=== PATIENT | male | born 1970 | race Caucasian/White ===

== ENCOUNTER 2019-05-03 09:10 | Emergency (ER) | payer SELFPAY ==
[~2019-05-03] VITALS: Ht 180.3 cm; Wt 70.5 kg
[2019-05-03 09:14] VITALS: BP 132/82
[2019-05-03] MEDS ORDERED: CLINDAMYCIN 300 MG CAPSULE PO ONE (09:30)
[2019-05-03] MEDS ORDERED: IBUPROFEN 600 MG TABLET PO ONE (09:30)
[2019-05-03] MEDS ORDERED: IBUPROFEN 600 MG TABLET ONE (09:42)
[2019-05-03] MEDS ORDERED: CLINDAMYCIN 300 MG CAPSULE ONE (09:42)
--- NOTE | 2019-05-03 09:46 | NUR ---
Patient given discharge instructions and they have confirmed that they understand the instructions. Patient ambulatory with steady gait.
== END 2019-05-03 09:53 | disposition home or self-care (01) ==
LOC: ED 09:22
DX: K02.9 Dental caries, unspecified (principal); K08.89 Other specified disorders of teeth and supporting structures
CPT/HCPCS: 99283

== ENCOUNTER 2019-05-04 08:04 | Emergency (ER) | payer SELFPAY ==
[~2019-05-04] VITALS: Ht 175.3 cm; Wt 69.9 kg
--- NOTE | 2019-05-04 08:08 | NUR ---
called for triage, in restroom.
[2019-05-04] MEDS ORDERED: IBUPROFEN 600 MG TABLET PO ONE (09:00)
[2019-05-04] MEDS ORDERED: CLINDAMYCIN 300 MG CAPSULE PO ONE (09:00)
[2019-05-04] MEDS ORDERED: CLINDAMYCIN 300 MG CAPSULE ONE (09:53)
[2019-05-04] MEDS ORDERED: IBUPROFEN 600 MG TABLET ONE (09:54)
[2019-05-04 09:58] VITALS: BP 135/88
--- NOTE | 2019-05-04 09:59 | NUR ---
Patient/Caregiver given discharge instructions and they have confirmed that they understand the instructions. Patient ambulatory with steady gait.
== END 2019-05-04 10:00 | disposition home or self-care (01) ==
LOC: ED 09:54
DX: K02.9 Dental caries, unspecified (principal); K08.89 Other specified disorders of teeth and supporting structures
CPT/HCPCS: 99283

== ENCOUNTER 2020-03-12 00:46 | Emergency (ER) | payer MEDICAID, MEDICARE, OTHER ==
[~2020-03-12] VITALS: Ht 180.3 cm; Wt 81.0 kg
[2020-03-12 00:49] VITALS: BP 121/92
--- NOTE | 2020-03-12 00:57 | NUR ---
assessment made. chart up for MD to see.
--- NOTE | 2020-03-12 01:04 | NUR ---
PA at bedside.
[2020-03-12] MEDS ORDERED: PROPARACAINE OPHTH 0.5%, 15ML ONE (01:16)
[2020-03-12] MEDS ORDERED: FLUORESCEIN OPHTHALMIC 1 MG STRIP ONE (01:16)
[2020-03-12] MEDS ORDERED: FLUORESCEIN OPHTHALMIC 1 MG STRIP EACHEYE ONE (01:30)
[2020-03-12] MEDS ORDERED: PROPARACAINE OPHTH 0.5%, 15ML EACHEYE ONE (01:30)
[2020-03-12] MEDS ORDERED: AZITHROMYCIN 250 MG TABLET ONE (01:46)
[2020-03-12] MEDS ORDERED: CEFTRIAXONE 250 MG ONE (01:46)
--- NOTE | 2020-03-12 01:57 | NUR ---
Pt medicated per emar, tolerated well
[2020-03-12] MEDS ORDERED: AZITHROMYCIN 500 MG TABLET PO ONE (02:00)
[2020-03-12] MEDS ORDERED: ERYTHROMYCIN OPHTH 0.5%, 1GM EACHEYE ONE (02:00)
[2020-03-12] MEDS ORDERED: CEFTRIAXONE 250 MG IM ONE (02:00)
--- NOTE | 2020-03-12 02:03 | NUR ---
patient discharged with instruction. verbalized understanding.
== END 2020-03-12 02:07 | disposition home or self-care (01) ==
LOC: ED 01:36
DX: H10.023 Other mucopurulent conjunctivitis, bilateral (principal)
CPT/HCPCS: 96372; 99283; J0696

== ENCOUNTER 2020-08-31 13:48 | Emergency (ER) | payer MEDICAID ==
[~2020-08-31] VITALS: Ht 180.3 cm; Wt 82.2 kg
[2020-08-31 13:51] VITALS: BP 187/108
--- NOTE | 2020-08-31 14:10 | NUR ---
PT TO ROOM FROM LOBBY
--- NOTE | 2020-08-31 14:15 | NUR ---
INITIAL PT CONTACT. PT PRESENTS TO THE ED C/O ETOH WITHDRAWAL. PT STATES "I DRINK A HALF GALLON TO A GALLON OF [place] OR [place] EVERY DAY. I REALLY WANT TO STOP. IT'S JUST GOTTEN PROGRESSIVELY WORSE. I FEEL A LITTLE SWEATY AND SHAKEY". PT SITTING UPRIGHT ON GURNEY, NAD, VSS. PT DENIES ANY NEEDS AT THIS TIME. CALL LIGHT AND PERSONAL BELONGINGS WITHIN REACH. CONTINUOUS PULSE OX AND SOLAR MANUFACTURER'S REPRESENTATIVE IN PLACE. WILL CONTINUE TO MONITOR.
[2020-08-31] MEDS ORDERED: ONDANSETRON 2MG/ML, 2ML ONE (14:35)
[2020-08-31] MEDS ORDERED: LORazepam 2 MG/ML, 1ML ONE (14:35)
[2020-08-31 14:50] LABS: BASOPHILS % (AUTO) 1 % (0-1); EOSINOPHILS % (AUTO) 1 % (1-7); LYMPHOCYTES % (AUTO) 26 % (22-44); MEAN CORPUSCULAR HEMOGLOBIN 31.4 pg (27.5-34.5); MEAN CORPUSCULAR HGB CONC 33.2 g/dL (33.2-36.2); MONOCYTES % (AUTO) 9 % (2-9); NEUTROPHILS % (AUTO) 62 % (42-75); PLATELET COUNT 245 x10^3/uL (130-400); RED BLOOD COUNT 4.51 x10^6/uL (4.38-5.82)
[2020-08-31] MEDS ORDERED: THIAMINE 100MG TABLET ONE (14:55)
[2020-08-31 14:57] LABS: MD NO
[2020-08-31] MEDS ORDERED: SODIUM CHLORIDE 0.9% 1,000ML IVBOLUS ONE (15:00)
[2020-08-31] MEDS ORDERED: ONDANSETRON 2MG/ML, 2ML IVPush ONE (15:00)
[2020-08-31] MEDS ORDERED: LORazepam 2 MG/ML, 1ML IVPush ONE (15:00)
[2020-08-31] MEDS ORDERED: THIAMINE 100MG TABLET PO ONE (15:00)
[2020-08-31 15:01] LABS: ALANINE AMINOTRANSFERASE 194 U/L (12-78); ALBUMIN 3.4 g/dL (3.4-5.0); ANION GAP 8 mmol/L (5-15); CALCIUM 8.9 mg/dL (8.5-10.1); CHLORIDE 112 mmol/L (98-107); CREATININE 1.03 mg/dL (0.7-1.3)
--- NOTE | 2020-08-31 15:03 | NUR ---
PT SITTING UPRIGHT ON GURNEY, NAD, VSS. PT DENIES ANY NEEDS AT THIS TIME. CALL LIGHT AND PERSONAL BELONGINGS WITHIN REACH.
[2020-08-31 15:04] LABS: ALKALINE PHOSPHATASE 121 U/L (45-117); BILIRUBIN,TOTAL 0.3 mg/dL (0.2-1.0); TOTAL PROTEIN 7.4 g/dL (6.4-8.2)
[2020-08-31] MEDS ORDERED: SODIUM CHLORIDE FLUSH 10ML SYR IVF ONE (15:30)
--- NOTE | 2020-08-31 16:00 | NUR ---
PT SLEEPING ON GURNEY COMFORTABLY, IVF STILL INFUSING, RESPONDS APPROP TO STAFF, NAD, NO NEEDS AT THIS TIME, CALL LIGHT WITHIN REACH.
--- NOTE | 2020-08-31 17:18 | NUR ---
Patient given discharge instructions, taxi voucher to [facility] and Rx, they have confirmed that they understand the instructions. Patient ambulatory with steady gait.
== END 2020-08-31 17:20 | disposition home or self-care (01) ==
LOC: ED 17:10
DX: F10.129 Alcohol abuse with intoxication, unspecified (principal); R11.0 Nausea; F17.200 Nicotine dependence, unspecified, uncomplicated; Y90.0 Blood alcohol level of less than 20 mg/100 ml
CPT/HCPCS: 36415; 80053; 80307; 85025; 96361; 96374; 96375; 99284; J2060; J2405; J7030